=== PATIENT | female | born 1985 | race Caucasian/White ===

== ENCOUNTER 2019-03-04 07:53 | Emergency (ER) | payer OTHER ==
[~2019-03-04] VITALS: Ht 170.2 cm; Wt 57.0 kg
[2019-03-04] MEDS ORDERED: IBUPROFEN 600MG TABLET PO ONE (08:45)
[2019-03-04 09:34] VITALS: BP 114/76
== END 2019-03-04 09:37 | disposition home or self-care (01) ==
LOC: ER 07:53
DX: M79.672 Pain in left foot (principal); M79.671 Pain in right foot
CPT/HCPCS: 73630; 81025; 99283

== ENCOUNTER 2019-03-08 10:13 | Emergency (ER) | payer OTHER ==
[~2019-03-08] VITALS: Ht 162.6 cm; Wt 60.0 kg
[2019-03-08 13:49] VITALS: BP 125/75
== END 2019-03-08 13:50 | disposition home or self-care (01) ==
LOC: ER 10:13
DX: M79.671 Pain in right foot (principal); Z90.89 Acquired absence of other organs
CPT/HCPCS: 99283